=== PATIENT | female | born 1980 | race Caucasian/White ===

== ENCOUNTER 2022-06-21 03:49 | Emergency (ER) | payer OTHER, MEDICAID ==
[2022-06-21] MEDS ORDERED: Mag-Al Plus 1200 MG/1200 MG/120 MG/30 ML UDCUP ONE (04:48)
[2022-06-21 05:11] LABS: Bilirubin Neg (Negative); Blood, Urine 10 (Negative); Clarity Clear (Clear); Glucose, Urine (Dipstick) Normal (Negative); Ketone, Urine Negative (Negative); Leukocyte 100 (Negative); Nitrite Negative (Negative); Protein, Urine (Dipstick) Negative (Neg-Trace); Urobilinogen Normal mg/dL (Less than 2)
[2022-06-21 05:22] LABS: RBC/HPF 0-3 HPF (0-3); Squamous Epithelial 0-3 HPF (0-3); WBC/HPF 0-3 HPF (0-3)
[2022-06-21 05:23] LABS: Bacteria/HPF Rare-Few HPF (None Seen)
== END 2022-06-21 06:02 | disposition home or self-care (01) ==
LOC: CSHERS 03:49
DX: N39.0 Urinary tract infection, site not specified (principal); R11.0 Nausea
CPT/HCPCS: 81003; 81015; 99284

== ENCOUNTER 2022-10-28 12:29 | Outpatient (CLI) | payer OTHER, MEDICAID | END 2022-10-28 12:30 | disposition home or self-care (01) | LOC: CSHMAMMO 12:29 | PROVIDERS: ATTEND Nurse Practitioner Women's Health | DX: Z12.31 Encounter for screening mammogram for malignant neoplasm of breast (principal); Z85.89 Personal history of malignant neoplasm of other organs and systems | CPT/HCPCS: 77063; 77067 ==